=== PATIENT | female | born 1950 | race Caucasian/White ===

== ENCOUNTER 2020-02-23 21:34 | Inpatient (IN) | payer OTHER, SELFPAY ==
--- NOTE | ~2020-02-23 | XR_ITS ---
EXAMINATION: XR chest 1V EXAM DATE: 02/23/2020 22:04 INDICATION: Shortness of breath, cough, low oxygen saturation. Hypertension. TECHNIQUE: Portable AP frontal chest x-ray was obtained. There is no prior study for comparison. FINDINGS: There is bilateral perihilar distribution acute airspace disease, could be pulmonary edema given the cardiomegaly and Central distribution. Periphery of the lungs are clear. No pneumothorax or pleural effusion. There are no osseous abnormalities identified. IMPRESSION: Sizable right greater than left perihilar acute airspace disease. Cardiomegaly. Consider CHF. Infection not excludable. Reviewed, dictated and finalized at location A. INSPECTOR IMPRESSION: Sizable right greater than left perihilar acute airspace disease. C ardiomegaly. Consider CHF. Infection not excludable.
--- NOTE | ~2020-02-23 | XR_ITS ---
EXAMINATION: XR chest 1V portable EXAM DATE: 02/25/2020 08:52 INDICATION: pneumonia. Isolation precautions. TECHNIQUE: Portable AP frontal chest x-ray was obtained. Comparison is made to prior examination from 02/23/2020. FINDINGS: Previously seen right greater than left perihilar airspace disease has essentially resolved , could have been edema given distribution and rapid improvement. Pneumonia also possible. No conflue nt consolidation, pneumothorax or pleural effusion suspected. Mild cardiomegaly. IMPRESSION: Resolution of previously seen right perihilar predominant acute airspace disease. Reviewed, dictated and finalized at location A. ERSITY ADMINISTRATIVE ASSISTANT IMPRESSION: Resolution of previously seen right perihilar predominant acute air space disease.
[2020-02-23 21:38] VITALS: BP 176/127; PULSE 110; RESP 23; O2SAT 100
--- NOTE | 2020-02-23 21:45 | ECG_ITS ---
Measurements Intervals [place] Rate: 97 P: IN: 0 QRS: -49 QRSD: 134 T: 105 QT: 391 QTc: 497 Interpretive Statements SINUS RHYTHM ATRIAL AND VENTRICULAR PREMATURE COMPLEXES LEFT BUNDLE BRANCH BLOCK ANTEROSEPTAL INFARCT OR DUE TO LBBB BASELINE ARTIFACT- I, II, III, AVR, AVL, AVF ABNORMAL ECG Electronically Signed On 02-24-2020 11:12:39 [place] by Kev Roberson D.O.
--- NOTE | 2020-02-23 21:48 | ED.SOB ---
HPI - SOB/Dyspnea General Chief Complaint: Shortness of Breath/Dyspnea Stated Complaint: difficulty breathing Time Seen by Provider: 02/23/20 21:38 History of Present Illness HPI Narrative: 69 yo female w/ h/o heart disease, htn presents to the ED for SOB. This started at about 2000 tonight. It has gotten progressively worse. Noted to have O2 saturation in the 60s on room air. She says she had similar symptoms when she had a heart attack. No Cp, fever. Related Data Home Medications Medication Instructions Recorded Confirmed aspirin 81 mg tablet,delayed 81 mg PO DAILY 07/13/19 02/24/20 release losartan 100 1 tablet PO DAILY 07/13/19 02/24/20 mg-hydrochlorothiazide 25 mg tablet metformin 500 mg tablet 500 mg PO BID tablet 02/15/20 02/24/20 Allergies Allergy/AdvReac Type Severity Reaction Status Date / Time No Known Allergies Allergy Verified 02/15/20 13:40 Review of Systems Review of Systems: All systems reviewed & are unremarkable except as noted in HPI and below Constitutional: Constitutional: Denies chills and Denies fever(s) ENT: Denies sore throat Cardiovascular: Cardiovascular: Denies chest pain Respiratory: Respiratory: Reports cough and Reports dyspnea Gastrointestinal: Gastrointestinal: Denies abdominal pain, Denies nausea and Denies vomiting Genitourinary: Genitourinary: Denies dysuria Musculoskeletal: Musculoskeletal: Denies back pain Neurologic: Denies confusion and Denies weakness [facility] Past Medical History Medical History Arthralgia Bruxism (teeth grinding) Cardiomyopathy (~2014) Chronic left hip pain Class 2 severe obesity with serious comorbidity and body mass index (BMI) of 38.0 to 38.9 in adult Depression Essential (primary) hypertension (~2012) Hearing loss Heart failure, unspecified (~2014) History of HI (myocardial infarction) (~2014) HLD (hyperlipidemia) (~2014) Hypersomnia Hypothyroidism (acquired) (~2017) JORGE (obstructive sleep apnea) Postmenopausal Scoliosis Type 2 diabetes mellitus without complications (~2017) Vitamin D deficiency Wears glasses Surgical History Surgical History History of bilateral tubal ligation (~1985) Family History Family History Father Cerebrovascular accident Family history of congestive heart failure Grandparent Cerebrovascular accident Social History Social History Smoking status: Never smoker Second hand tobacco smoke exposure: No Alcohol intake: current Drinks per week: 1 Substance use: never Substance use type: does not use Gender identity (if verbalized by the patient): Female Spiritual care concerns: No Exam Const: General: alert and ill appearing Nutritional Appearance: obese Orientation/consciousness: patient oriented x3 HENMT: Head: normal to inspection Resp: Effort & Inspection: tachypneic Auscultation: crackles Cardio: Rhythm: abnormal rhythm irregularly irregular GI: GI Palp: No Tenderness to palpation present (GI) Skin: General skin exam: normal color Neuro: General: patient oriented x3 and moves all extremities Extrem: General: no edema Course Vital Signs Vital signs: Vital Signs Pulse Rate 110 H 02/23/20 21:38 Respiratory Rate 23 H 02/23/20 21:38 Blood Pressure 176/127 H 02/23/20 21:38 Pulse Oximetry 100 02/23/20 21:38 Temperature 36.2 C L 02/25/20 20:00 Pulse Rate 67 02/25/20 20:55 Respiratory Rate 20 02/25/20 16:00 Blood Pressure 114/60 02/25/20 16:00 Pulse Oximetry 96 02/25/20 20:00 MDM - SOB/Dyspnea Differential Diagnosis Differential diagnosis: Likely acute exacerbation of chronic obstructive airways disease, congestive heart failure and community acquired pneumonia Medical Records Attestation:
[2020-02-23 22:10] VITALS: PULSE 96; RESP 29
[2020-02-23] MEDS: NITROGLYCERIN OINTMENT 1 INCH DOSE TRANSDERM (22:14)
[2020-02-23 22:22] LABS: Basophils Absolute Auto 0.1 K/mm3 (0.0-0.1); Basophils Percent Auto 0.4 % (0.2-1.2); Eosinophils Absolute Auto 0.3 K/mm3 (0-0.3); Eosinophils Percent Auto 2.1 % (0-4.4); Hematocrit 44.5 % (37.0-47.0); Hemoglobin 14.6 g/dL (12.0-15.0); Immature Granulocyte Absolute 0.08 K/mm3 (0.00-0.031); Immature Granulocyte Percent A 0.5 % (0-0.5); Lymphocytes Absolute Auto 4.47 K/mm3 (0.9-3.2); Lymphocytes Percent Auto 29.3 % (18.3-44.2); Mean Corpuscular HGB Conc 32.8 g/dl (32-36); Mean Corpuscular Hemoglobin 32.2 pg (26-34); Mean Corpuscular Volume 98.2 fl (80-100); Mean Platelet Volume 10.3 fl (7.4-10.4); Monocytes Absolute Auto 0.8 K/mm3 (0.1-0.6); Monocytes Percent Auto 5.3 % (2.6-8.5); Neutrophils Absolute Auto 9.5 K/mm3 (1.3-6.7); Neutrophils Percent Auto 62.4 % (45.5-73.1); Platelet Count Result 363 k/mm3 (150-375); Red Blood Count 4.53 M/mm3 (4.2-5.4); Red Cell Distribution Width 13.1 % (11.5-14.5); White Blood Count 15.3 K/mm3 (4.5-10.0)
[2020-02-23] MEDS: FUROSEMIDE INJ 40 MG/4 ML VIAL IV PUSH (22:25)
[2020-02-23 22:34] LABS: Lactic Acid Reflex 1.8 mmol/L (0.7-2.1)
[2020-02-23 22:42] LABS: Alanine Aminotransferase 16 U/L (4-35); Albumin Level 3.7 g/dL (3.5-5.1); Alkaline Phosphatase 111 U/L (38-126); Anion Gap 6 mmol/L (8-16); Aspartate Amino Transferase 22 U/L (14-36); Bilirubin,Total 0.4 mg/dL (0.2-1.3); Blood Urea Nitrogen 16 mg/dL (7-17); Calcium 8.6 mg/dL (8.4-10.2); Carbon Dioxide 27 mmol/L (22-30); Chloride 102 mmol/L (98-107); Estimated CRCL calculation 54 ml/min; Estimated Glomerular Filt Rate 50; Glucose 408 mg/dL (65-105); Potassium 4.4 mmol/L (3.4-5.0); Sodium 135 mmol/L (137-145)
[2020-02-23 22:51] LABS: Prothrombin Time 13.9 Seconds (11.1-14.7)
[2020-02-23 22:52] LABS: Partial Thromboplastin Time 22.4 SECONDS (22.3-36.8)
--- NOTE | 2020-02-23 22:53 | PM.IMHP ---
H&P: HPI History of Present Illness Date/Time: 02/23/20 22:53 Chief Complaint: Dyspnea Narrative: Isabelle Messina is a 69 year old female with past medical history of hypothyroidism, CHF, history of TX, hypertension, hyperlipidemia, anxiety/depression, diabetes type 2 who presents to the ED with complaints of dyspnea. She was working in her barn outside this evening and felt short of breath with sudden onset so much that she had to call EMS. Did not have any precipitating symptoms, no other complaints, no headache or chest pain or migraines. A similar episode happened 3 years ago when she was outside working in her barn when she suddenly felt short of breath and at that time she was sent to the hospital, thought to have an TX, was told she had heart failure, and coronary catheterization was clear at the time. Since then she has been on aspirin, statin, carvedilol. She also has hypothyroidism on levothyroxine. She saw her PCP on the of this month for preop for left hip replacement which she plans on having early next year. She denies any recent travels, estrogen supplements, history of blood clots or family history of blood clots. She denies any sick contacts or exposures to COVID-19. She denies any history of pneumonia or frequent pulmonary infections in her life. She has 4 adult children but no one lives nearby, closest family is 1.5 hours away. She is usually pretty independent and very active. She is a never smoker. Patient endorses dyspnea, denies chest pain or lightheadedness or dizziness or hemoptysis or feve/ chills. In the ED: Patient was seen be hypoxic oxygen saturation 60s on room air. She put on BiPAP with good improvement with saturations in the 90s. Patient is lucid awake alert. She was given IV Lasix. Patient to be admitted to IMU for management of acute respiratory failure secondary to likely CHF exacerbation/flash pulmonary edema. Review of Systems Review of Systems: Narrative: Constitutional: No Fever, No Chills, No Night Sweats, No Fatigue, No Malaise. Endorses generalized weakness ENT/Mouth: No Hearing Changes, No Ear Pain, No Nasal Congestion, No Sinus Pain, No Hoarseness, No sore throat, No Rhinorrhea, No Swallowing Difficulty Eyes: No Eye Pain, No Redness, No Vision Changes Cardiovascular: No Chest Pain, No Palpitations,No Claudication, No peripheral Edema. Endorses dyspnea on exertion. Respiratory: Endorses persistent dry cough. No Sputum, No Wheezing Gastrointestinal: No Nausea, No Vomiting, No Diarrhea, No Constipation, No Abdominal Pain, No Heartburn, No Hematochezia, No Melena Genitourinary: No Dysuria, No Urinary Frequency, No Hematuria, No Urinary Incontinence, No Urgency Musculoskeletal: No Arthralgias, No Myalgias, No Joint Swelling, No Joint Stiffness, No Back Pain Skin: No Skin Lesions, No Pruritis, No Hair Changes Neuro: No Weakness, No Numbness, No Paresthesias, No Loss of Consciousness, No Syncope, No Dizziness, No Headache Psych: No Anxiety/Panic, No Depression, No Insomnia Heme: No Bruising, No Bleeding Lymph: No Adenopathy Endocrine: No Polyuria, No Polydipsia, No Temperature Intolerance PMFSH Past Medical History Medical History Arthralgia Bruxism (teeth grinding) Cardiomyopathy (~2014) Chronic left hip pain Class 2 severe obesity with serious comorbidity and body mass index (BMI) of 38.0 to 38.9 in adult Depression Essential (primary) hypertension (~2012) Hearing loss Heart failure, unspecified (~2014) History of TX (myocardial infarction) (~2014) HLD (hyperlipidemia) (~2014) Hypersomnia Hypothyroidism (acquired) (~2017) JORGE (obstructive sleep apnea) Postmenopausal Scoliosis Type 2 diabetes mellitus without complications (~2017) Vitamin D deficiency Wears glasses Surgical History Surgical History History of bilateral tubal ligation (~1985) Family
[2020-02-23 22:54] LABS: NT Pro B Type Natriuretic Pept 1890 PG/ML (5-100); Troponin I 0.014 ng/mL (0.000-0.034)
[2020-02-24] VITALS (19 sets, daily range): BP systolic 98–169; BP diastolic 52–85; PULSE 59–96; RESP 16–20; TEMP 36.1–36.4; O2SAT 93–100; BMI 37.0
--- NOTE | 2020-02-24 01:23 | PC.NURSE ---
[facility]01. Patient/family oriented to hospital policies and general routines including ID bracelet, bed and alarms, visiting hours, pain management, procedures, bathroom and other care routines, personal items, smoking policy, room service/diet, and visiting hours. Information on how to activate the Rapid Response Team has been discussed. Patient/Family are encouraged to report perceived risks to care and to ask questions if they do not understand what they are told or what they should do.
--- NOTE | 2020-02-24 01:23 | PC.NURSE ---
ED RT came and stated that patient doesnt need to be on BiPap anymore and placed patient on 2L of Oxygen. Patient's oxygen is 96% on 2L Nasal canula
[2020-02-24 03:14] LABS: Hemoglobin A1C 6.5 % (<5.7)
[2020-02-24 06:06] LABS: Potassium 3.8 mmol/L (3.4-5.0)
[2020-02-24 06:16] LABS: Anion Gap 9 mmol/L (8-16); Blood Urea Nitrogen 16 mg/dL (7-17); Calcium 8.6 mg/dL (8.4-10.2); Carbon Dioxide 28 mmol/L (22-30); Chloride 101 mmol/L (98-107); Estimated CRCL calculation 59 ml/min; Estimated Glomerular Filt Rate 55; Glucose 134 mg/dL (65-105); Sodium 138 mmol/L (137-145)
[2020-02-24] MEDS: carvediloL 25 MG TABLET PO ×2 (09:07→21:20)
[2020-02-24] MEDS: LOSARTAN POTASSIUM 100 MG TABLET PO (09:07)
[2020-02-24] MEDS: ATORVASTATIN 40 MG TABLET PO (09:08)
[2020-02-24] MEDS: ASPIRIN 81 MG ENTERIC TABLET PO (09:08)
[2020-02-24] MEDS: LEVOTHYROXINE SODIUM 100 MCG TABLET PO (09:08)
[2020-02-24] MEDS: hydroCHLOROthiazide 25 MG TABLET PO (09:08)
[2020-02-24] MEDS: DULoxetine HCL 20 MG CAPSULE.DR 40 MG PO (09:08)
[2020-02-24] MEDS: FUROSEMIDE INJ 40 MG/4 ML VIAL IV PUSH (09:09)
[2020-02-24] MEDS: ENOXAPARIN 40 MG/0.4 ML SYRINGE SUB-Q (09:09)
[2020-02-24 13:32] LABS: Glucose Point of Care 130 (65-105)
--- NOTE | 2020-02-24 14:19 | PM.IMPN ---
Progress Note: A&P Assessment and Plan (1) Acute respiratory failure with hypoxia: Code(s): J96.01 - Acute respiratory failure with hypoxia Status: Acute Assessment and Plan: -differential diagnosis includes flash pulmonary edema versus community-acquired pneumonia versus COVID-19 -patient was put on BiPAP in the ED, will continue to watch and wean as we diurese to keep oxygen saturation greater 90% -COVID-19 test pending, checking blood cultures -with no fever/chills and symptoms like dry cough more likely from pulmonary edema, likely diagnosis is CHF and flash pulmonary edema as opposed to infectious etiology -holding off on antibiotics 02/24/20 14:19 Patient is 69-year-old morbidly obese female history of diabetes, hypertension, coronary artery disease, patient states he was doing reasonably well working in the barn and developed shortness of breath presented emergency department for further evaluation, patient denies any contact to known, COVID, chest x-ray shows significant consolidation infectious versus pulmonary edema patient is being diuresed will do cardiac echo to further evaluate will start the patient on Zithromax and Rocephin for community-acquired pneumonia, will follow-up on COVID-19 test and further recommendation to follow meanwhile patient is isolated (2) Heart failure, unspecified: Onset Date: ~2014 Qualifiers: Heart failure chronicity: acute on chronic Heart failure type: unspecified Qualified Code(s): I50.9 - Heart failure, unspecified Code(s): I50.9 - Heart failure, unspecified Status: Acute Assessment and Plan: -will repeat echocardiogram, patient states she has history of heart failure. Unknown baseline. She was previously told she had a heart attack however had a negative catheterization. He is not on any loop diuretics at home. -continue home Coreg -diuresing with IV Lasix with good urine output, she has already been weaned down to 2 L oxygen satting at 98% -strict inputs and outputs -trying to wean off O2 -patient is already on Arb, beta-loly, diuretics, statin -patient appeared to be in sinus rhythm, telemetry consistent with sinus rhythm, ER documented irregular rhythm, checking EKG to verify rhythm, patient has no history of AFib (3) Degenerative joint disease (DJD) of hip: Qualifiers: Laterality: left Osteoarthritis type: primary Qualified Code(s): M16.12 - Unilateral primary osteoarthritis, left hip Code(s): M16.9 - Osteoarthritis of hip, unspecified Status: Acute Assessment and Plan: -patient plans on having left hip replacement soon outpatient electively (4) Class 2 severe obesity with serious comorbidity and body mass index (BMI) of 38.0 to 38.9 in adult: Qualifiers: Obesity type: due to excess calories Qualified Code(s): E66.01 - Morbid (severe) obesity due to excess calories; Z68.38 - Body mass index [BMI] 38.0-38.9, adult Code(s): E66.01 - Morbid (severe) obesity due to excess calories; Z68.38 - Body mass index [BMI] 38.0-38.9, adult Status: Acute (5) CKD (chronic kidney disease): Code(s): N18.9 - Chronic kidney disease, unspecified Status: Acute Assessment and Plan: -currently GFR 50, unknown baseline -likely has underlying renal disease with her history of hypertension and diabetes -creatinine 1.1 Additional Plan # other chronic conditions -type 2 diabetes: Hold metformin, medium dose sliding scale insulin, Accu-Cheks a.c. HS, hypoglycemic protocol, checking hemoglobin A1c -hypertension: Continue home losartan, hydrochlorothiazide, Coreg -hypothyroidism: Continue levothyroxine -hyperlipidemia, history of NC: Continue atorvastatin, aspirin -anxiety/depression: Continue duloxetine Diet: Heart healthy with 1.5 L fluid restriction DVT prophylaxis: Lovenox Code status: Full code Disposition: Home 2-3 days for IV diuresis with kidney disease and acute respiratory fa
[2020-02-24 17:11] LABS: Glucose Point of Care 141 (65-105)
[2020-02-24 19:16] LABS: Glucose Point of Care 170 (65-105)
[2020-02-24 20:37] LABS: Glucose Point of Care 165 (65-105)
[2020-02-25] VITALS (17 sets, daily range): BP systolic 113–142; BP diastolic 60–79; PULSE 54–90; RESP 18–20; TEMP 36.1–36.8; O2SAT 96–99
--- NOTE | 2020-02-25 | ECHO_ITS ---
Patient Info Name: Isabelle Messina Age: 69 years : 1950 Gender: Female Ht: 66 in Wt: 229 lbs BSA: 2.24 m2 HR: 67 bpm BP: 130 / 79 mmHg Heart Rhythm: Sinus Rhythm Technical Quality: Good Exam Date: 02/25/2020 8:05 AM Exam Location: [facility] Pulmonary Patient Status: Inpatient Admit Date: 02/23/2020 Staff Ordering Physician: Missy Roberts DO Jig Borer: Noemí Lopez RDCS Attending Provider: Missy Roberts DO Referring Physician: Alejandra POWER; Exam Type: CA echo doppler color flow Study Info Complete two-dimensional, color flow and Doppler transthoracic echocardiogram is performed. Summary 1. Complete two-dimensional, color flow and Doppler transthoracic echocardiogram is performed. 2. Mild left ventricular enlargement with moderate hypertrophy. Moderate global hypokinesis, worse in the inferoseptal gupta. EF estimated to be 40%. Grade 1 diastolic dysfunction is present. 3. Left atrial chamber dimension is moderately enlarged. 4. No pulmonary hypertension. 5. There is mild to moderate mitral valve regurgitation. 6. There is trivial pericardial effusion. 7. Normal sinus rhythm. Left Ventricle Left ventricular chamber dimension is mildly enlarged. Left ventricular systolic function is moderately reduced, estimated at 40-45%. There is moderately increased left ventricular wall thickness. Left ventricular septal wall motion is normal. The left ventricular diastolic function is grade I diastolic dysfunction. Mild left ventricular enlargement with moderate hypertrophy. Moderate global hypokinesis, worse in the inferoseptal gupta. EF estimated to be 40%. Grade 1 diastolic dysfunction is present. Right Ventricle Right ventricular chamber dimension is normal. Right ventricular systolic function is normal. Left Atria Left atrial chamber dimension is moderately enlarged. Right Atria Right atrial chamber dimension is normal. Aortic Valve The aortic valve is trileaflet. There is no aortic valve sclerosis. There is no aortic valve stenosis. There is no aortic valve regurgitation. Pulmonic Valve The pulmonic valve is normal. There is no pulmonic valve stenosis. There is no pulmonic regurgitation. Mitral Valve The mitral valve has normal leaflets. There is no mitral valve stenosis. There is mild to moderate mitral valve regurgitation. Tricuspid Valve The tricuspid valve leaflets are normal. There is no significant tricuspid valve stenosis. There is trace tricuspid valve regurgitation. No pulmonary hypertension. Pericardium/Pleural The pericardium appears normal. There is trivial pericardial effusion. Inferior Vena Cava Normal inferior vena cava with >50% collapse upon inspiration consistent with Empty right atrial pressure, 10 mmHg. Aorta The aortic root size at the sinus of Valsalva is normal. The prox ascending aorta size is normal. Left Ventricular Outflow Tract Name Value Normal LVOT 2D LVOT Diameter 2.2 cm LVOT Doppler LVOT Peak Gradient 2 mmHg LVOT Mean Gradient 1 mmHg
[2020-02-25] MEDS: LEVOTHYROXINE SODIUM 100 MCG TABLET PO (06:12)
[2020-02-25 06:52] LABS: Anion Gap 6 mmol/L (8-16); Blood Urea Nitrogen 21 mg/dL (7-17); Calcium 9.1 mg/dL (8.4-10.2); Carbon Dioxide 35 mmol/L (22-30); Chloride 97 mmol/L (98-107); Estimated CRCL calculation 49 ml/min; Estimated Glomerular Filt Rate 45; Glucose 141 mg/dL (65-105); Magnesium 1.9 mg/dL (1.6-2.3); Potassium 3.4 mmol/L (3.4-5.0); Sodium 138 mmol/L (137-145)
[2020-02-25 08:24] LABS: Glucose Point of Care 156 (65-105)
[2020-02-25] MEDS: carvediloL 25 MG TABLET PO ×2 (09:25→20:55)
[2020-02-25] MEDS: LOSARTAN POTASSIUM 100 MG TABLET PO (09:25)
[2020-02-25] MEDS: DULoxetine HCL 20 MG CAPSULE.DR 40 MG PO (09:25)
[2020-02-25] MEDS: ATORVASTATIN 40 MG TABLET PO (09:25)
[2020-02-25] MEDS: ASPIRIN 81 MG ENTERIC TABLET PO (09:25)
[2020-02-25] MEDS: hydroCHLOROthiazide 25 MG TABLET PO (09:25)
[2020-02-25] MEDS: FUROSEMIDE INJ 40 MG/4 ML VIAL IV PUSH (09:26)
[2020-02-25] MEDS: ENOXAPARIN 40 MG/0.4 ML SYRINGE SUB-Q (09:26)
[2020-02-25 11:53] LABS: Glucose Point of Care 172 (65-105)
--- NOTE | 2020-02-25 13:38 | PM.IMPN ---
Progress Note: A&P Assessment and Plan (1) Acute respiratory failure with hypoxia: Code(s): J96.01 - Acute respiratory failure with hypoxia Status: Acute Assessment and Plan: -differential diagnosis includes flash pulmonary edema versus community-acquired pneumonia versus COVID-19 -patient was put on BiPAP in the ED, will continue to watch and wean as we diurese to keep oxygen saturation greater 90% -COVID-19 test pending, checking blood cultures -with no fever/chills and symptoms like dry cough more likely from pulmonary edema, likely diagnosis is CHF and flash pulmonary edema as opposed to infectious etiology -holding off on antibiotics 02/25/20 13:38 Patient is 69-year-old morbidly obese female history of diabetes, hypertension, coronary artery disease, 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 Today patient states feeling much better not short of breath, repeat chest x-ray today also showed significant improvement resolution of pulmonary edema, patient COVID is still is pending will continue to monitor the patient and further recommendation to follow will have a PT OT evaluate the patient. (2) Heart failure, unspecified: Onset Date: ~2014 Qualifiers: Heart failure type: unspecified Heart failure chronicity: acute on chronic Qualified Code(s): I50.9 - Heart failure, unspecified Code(s): I50.9 - Heart failure, unspecified Status: Acute Assessment and Plan: -will repeat echocardiogram, patient states she has history of heart failure. Unknown baseline. She was previously told she had a heart attack however had a negative catheterization. He is not on any loop diuretics at home. 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 Today patient states feeling much better not short of breath, repeat chest x-ray today also showed significant improvement resolution of pulmonary edema, patient COVID is still is pending will continue to monitor the patient and further recommendation to follow will have a PT OT evaluate the patient. Review of Systems Review of Systems: All systems reviewed & are unremarkable except as noted in HPI and below Exam Narrative: Exam Narrative: Morbidly obese Patient is comfortable, NAD HEENT: eyes are clear and none icteric LUNGS: Normal respiratory effort ABD: Obese and distended Lower extremities: no edema SKIN: nonjaundiced Neuro: grossly intact normal speech. Objec
[2020-02-25 16:24] LABS: Glucose Point of Care 148 (65-105)
[2020-02-25 19:30] LABS: SARS-CoV-2 RNA PCR Negative
[2020-02-25 20:47] LABS: Glucose Point of Care 182 (65-105)
[2020-02-26] VITALS (11 sets, daily range): BP systolic 119–129; BP diastolic 55–69; PULSE 57–95; RESP 16–20; TEMP 36.3–36.8; O2SAT 90–98
[2020-02-26] MEDS: LEVOTHYROXINE SODIUM 100 MCG TABLET PO (05:32)
[2020-02-26 06:00] LABS: Anion Gap 9 mmol/L (8-16); Blood Urea Nitrogen 28 mg/dL (7-17); Calcium 9.3 mg/dL (8.4-10.2); Carbon Dioxide 34 mmol/L (22-30); Chloride 94 mmol/L (98-107); Estimated CRCL calculation 49 ml/min; Estimated Glomerular Filt Rate 45; Glucose 150 mg/dL (65-105); Potassium 3.1 mmol/L (3.4-5.0); Sodium 137 mmol/L (137-145)
[2020-02-26 08:00] LABS: Glucose Point of Care 156 (65-105)
[2020-02-26] MEDS: POTASSIUM CHLORIDE 20 MEQ TABLET 40 MEQ PO (09:20)
[2020-02-26] MEDS: DULoxetine HCL 20 MG CAPSULE.DR 40 MG PO (09:21)
[2020-02-26] MEDS: ASPIRIN 81 MG ENTERIC TABLET PO (09:21)
[2020-02-26] MEDS: ENOXAPARIN 40 MG/0.4 ML SYRINGE SUB-Q (09:22)
[2020-02-26] MEDS: LOSARTAN POTASSIUM 100 MG TABLET PO (09:22)
[2020-02-26] MEDS: ATORVASTATIN 40 MG TABLET PO (09:22)
[2020-02-26] MEDS: carvediloL 25 MG TABLET PO (09:22)
[2020-02-26] MEDS: FUROSEMIDE INJ 40 MG/4 ML VIAL IV PUSH (09:23)
[2020-02-26] MEDS: hydroCHLOROthiazide 25 MG TABLET PO (09:23)
--- NOTE | 2020-02-26 11:04 | HOMEO2EVAL ---
Home Oxygen Evaluation RC: Home Oxygen (O2) Evaluation Start: 02/26/20 08:03 Freq: ONCE Status: Active Protocol: RPE Activity Type Activity Date Activity User E-Sign Co-Sign Detail Recorded Client Recorded Date Recorded By Document 02/26/20 10:30 [facility]_RT_02/26/20 11:04 [facility] Document 02/26/20 10:32 [facility]_RT_02/26/20 11:04 [facility] Document 02/26/20 10:41 [facility]_RT_02/26/20 11:04 [facility] 02/26/20 02/26/20 02/26/20 10:30 10:32 10:41 Home O2 Evaluation Test Phase Resting Exercise Resting Oxygen Delivery Room Air Room Air Room Air Fraction of Inspired Oxygen (%) 21 21 21 Pulse Oximetry (90-100 %) 90 90 93 Pulse Rate (60-100 beats/min) 88 95 92 Activity Tolerance Good Good Good Ambulation Distance (feet) 80 Home Oxygen Evaluation Comments Pt does not qualify for home oxygen Treatment Charges O2 Evaluation
--- NOTE | 2020-02-26 11:37 | PM.DS ---
DS: Admitting Diagnosis Admitting Diagnosis Admitting Diagnosis: Dyspnea DS: Discharge Diagnosis Discharge Diagnosis (1) Acute respiratory failure with hypoxia: Code(s): J96.01 - Acute respiratory failure with hypoxia Status: Acute Assessment and Plan: -differential diagnosis includes flash pulmonary edema versus community-acquired pneumonia versus COVID-19 -patient was put on BiPAP in the ED, will continue to watch and wean as we diurese to keep oxygen saturation greater 90% -COVID-19 test pending, checking blood cultures -with no fever/chills and symptoms like dry cough more likely from pulmonary edema, likely diagnosis is CHF and flash pulmonary edema as opposed to infectious etiology -holding off on antibiotics 02/25/20 13:38 Patient is 69-year-old morbidly obese female history of diabetes, hypertension, coronary artery disease, 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 Today patient states feeling much better not short of breath, repeat chest x-ray today also showed significant improvement resolution of pulmonary edema, patient COVID is still is pending will continue to monitor the patient and further recommendation to follow will have a PT OT evaluate the patient. (2) Heart failure, unspecified: Onset Date: ~2014 Qualifiers: Heart failure type: unspecified Heart failure chronicity: acute on chronic Qualified Code(s): I50.9 - Heart failure, unspecified Code(s): I50.9 - Heart failure, unspecified Status: Acute Assessment and Plan: -will repeat echocardiogram, patient states she has history of heart failure. Unknown baseline. She was previously told she had a heart attack however had a negative catheterization. He is not on any loop diuretics at home. -continue home Coreg -diuresing with IV Lasix with good urine output, she has already been weaned down to 2 L oxygen satting at 98% -strict inputs and outputs -trying to wean off O2 -patient is already on Arb, beta-loly, diuretics, statin -patient appeared to be in sinus rhythm, telemetry consistent with sinus rhythm, ER documented irregular rhythm, checking EKG to verify rhythm, patient has no history of AFib DS: Summary Hospital Course Reason for hospitalization: Chief Complaint: Dyspnea Narrative: Isabelle Messina is a 69 year old female with past medical history of hypothyroidism, CHF, history of UT, hypertension, hyperlipidemia, anxiety/depression, diabetes type 2 who presents to the ED with complaints of dyspnea. She was working in her barn outside this evening and felt short of breath with sudden onset so much that she had to call EMS. Did not have any precipitating symptoms, no other complaints, no headache or chest pain or migraines. A similar episode happened 3 years ago when she was outside working in her barn when she suddenly felt short of breath and at that time she was sent to the hospital, thought to have an UT, was told she had heart failure, and coronary catheterization was clear at the time. Since then she has been on aspirin, statin, carvedilol. She also has hypothyroidism on levothyroxine. She saw her PCP on the of this month for preop for left hip replacement which she plans on having early next year. She denies any recent travels, estrogen supplements, history of blood clots or family history of blood clots. She denies any sick contacts or exposures to COVID-19. She denies any history of pneumonia or frequent pulmonary infections in h
== END 2020-02-26 13:06 | disposition home or self-care (01) | DRG 291 ==
LOC: ANHED 23:11 → ANHIMU 02-25 22:52
PROVIDERS: Admitting Provider Student in an Organized Health Care Education/Training Program; Emergency Provider Emergency Medicine; PCP Family Medicine; Visit Provider Family Medicine
DX: I13.0 Hypertensive heart and chronic kidney disease with heart failure and stage 1 through stage 4 chronic kidney disease, or unspecified chronic kidney disease (principal); J18.9 Pneumonia, unspecified organism; J96.01 Acute respiratory failure with hypoxia; Z20.828 Contact with and (suspected) exposure to other viral communicable diseases; N18.9 Chronic kidney disease, unspecified; I50.9 Heart failure, unspecified; E11.22 Type 2 diabetes mellitus with diabetic chronic kidney disease; E66.01 Morbid (severe) obesity due to excess calories; Z68.36 Body mass index [BMI] 36.0-36.9, adult; I25.10 Atherosclerotic heart disease of native coronary artery without angina pectoris; G47.33 Obstructive sleep apnea (adult) (pediatric); M41.9 Scoliosis, unspecified; F41.8 Other specified anxiety disorders; E55.9 Vitamin D deficiency, unspecified; E03.9 Hypothyroidism, unspecified; E11.9 Type 2 diabetes mellitus without complications; E78.5 Hyperlipidemia, unspecified; M16.9 Osteoarthritis of hip, unspecified; I25.2 Old myocardial infarction
CPT/HCPCS: 36415; 71045; 80048; 80053; 83036; 83605; 83735; 83880; 84484; 85025; 85610; 85730; 87040; 87635; 93005; 93306; 94618; 96374; 97161; 97165; 99291; A9270; C9803; J1650; J1940; U0003

== ENCOUNTER 2020-04-25 20:57 | Observation (INO) | payer OTHER, SELFPAY ==
--- NOTE | ~2020-04-25 | XR_ITS ---
EXAMINATION: XR chest 2V DATE: 04/25/2020 21:38 INDICATION: Shortness of breath. TECHNIQUE: Frontal and lateral views of the chest were obtained. COMPARISON: Chest single view 02/25/2020 FINDINGS: There is a diffuse interstitial pattern, consistent with mild pulmonary edema. There are sm all pleural effusions. There is mild atelectasis at the lung bases. No pneumothorax. Cardiomegaly is noted. IMPRESSION: 1. Mild pulmonary edema. 2. Small pleural effusions. 3. Cardiomegaly. Reviewed, dictated and finalized at location A. [employer]
[2020-04-25 21:04] VITALS: BP 148/109; PULSE 93; RESP 20; TEMP 36.1; O2SAT 84
[2020-04-25 21:13] VITALS: PULSE 110; RESP 38; O2SAT 86
[2020-04-25 21:15] VITALS: PULSE 95; RESP 31; O2SAT 88; O2SAT 94
--- NOTE | 2020-04-25 21:15 | ECG_ITS ---
Measurements Intervals [place] Rate: 100 P: KS: 0 QRS: -36 QRSD: 120 T: 99 QT: 357 QTc: 462 Interpretive Statements ATRIAL FIBRILLATION WITH RAPID VENTRICULAR RESPONSE LEFT AXIS DEVIATION LEFT BUNDLE BRANCH BLOCK ANTEROSEPTAL INFARCT OR DUE TO LBBB BASELINE ARTIFACT- I, II, III, AVR, AVL, AVF, V1-V3 ABNORMAL ECG Electronically Signed On 04-26-2020 6:47:19 [employer] by Kev Roberson D.O.
[2020-04-25 21:20] VITALS: BP 157/112; PULSE 101; RESP 38; O2SAT 94
[2020-04-25 21:46] LABS: Basophils Absolute Auto 0.1 K/mm3 (0.0-0.1); Basophils Percent Auto 0.4 % (0.2-1.2); Eosinophils Absolute Auto 0.2 K/mm3 (0-0.3); Eosinophils Percent Auto 1.1 % (0-4.4); Hematocrit 38.8 % (37.0-47.0); Hemoglobin 13.2 g/dL (12.0-15.0); Immature Granulocyte Absolute 0.04 K/mm3 (0.00-0.031); Immature Granulocyte Percent A 0.3 % (0-0.5); Lymphocytes Absolute Auto 2.56 K/mm3 (0.9-3.2); Lymphocytes Percent Auto 19.2 % (18.3-44.2); Mean Corpuscular Volume 94.2 fl (80-100); Mean Platelet Volume 10.2 fl (7.4-10.4); Monocytes Absolute Auto 0.9 K/mm3 (0.1-0.6); Neutrophils Absolute Auto 9.6 K/mm3 (1.3-6.7); Platelet Count Result 286 k/mm3 (150-375); Red Blood Count 4.12 M/mm3 (4.2-5.4); Red Cell Distribution Width 14.2 % (11.5-14.5); White Blood Count 13.4 K/mm3 (4.5-10.0)
--- NOTE | 2020-04-25 21:49 | ED.SOB ---
HPI - SOB/Dyspnea General Chief Complaint: Shortness of Breath/Dyspnea Stated Complaint: high blood pressure Time Seen by Provider: 04/25/20 21:18 Source: patient Mode of arrival: ambulatory Limitations: no limitations History of Present Illness HPI Narrative: A 69-year-old female comes into the emergency department today with complaints of shortness of breath. Patient states that she is also having a lot of back pain. Patient states that she thinks this is pneumonia because whenever she gets pneumonia she gets pain in her back like this. She does endorse a sporadically productive cough. She denies any fevers or chills. Related Data Home Medications Medication Instructions Recorded Confirmed aspirin 81 mg tablet,delayed 81 mg PO DAILY 07/13/19 02/24/20 release losartan 100 1 tablet PO DAILY 07/13/19 02/24/20 mg-hydrochlorothiazide 25 mg tablet metformin 500 mg tablet 500 mg PO BID tablet 02/15/20 02/24/20 Allergies Allergy/AdvReac Type Severity Reaction Status Date / Time No Known Allergies Allergy Verified 02/15/20 13:40 Review of Systems Review of Systems: Narrative: CONSTITUTIONAL: Denies fever, chills, or sweats. EYES: Denies visual changes, redness, or discharge. ENT: Denies rhinorrhea, congestion, sore throat, or otalgia. CARDIOVASCULAR: Denies chest pain, palpitations, or edema. RESPIRATORY: Endorses cough and shortness of breath. GASTROINTESTINAL: Denies abdominal pain, nausea, vomiting, or diarrhea. GENITOURINARY: Denies dysuria or hematuria. SKIN: Denies rash or itching. MUSCULOSKELETAL: Denies back pain, joint pain, or myalgia. NEUROLOGIC: Denies headache, numbness, dizziness, or weakness. PSYCHIATRIC: Denies anxiety or depression. [facility] Past Medical History Medical History Arthralgia Bruxism (teeth grinding) Cardiomyopathy (~2014) Chronic left hip pain Class 2 severe obesity with serious comorbidity and body mass index (BMI) of 38.0 to 38.9 in adult Depression Essential (primary) hypertension (~2012) Hearing loss Heart failure, unspecified (~2014) History of FL (myocardial infarction) (~2014) HLD (hyperlipidemia) (~2014) Hypersomnia Hypothyroidism (acquired) (~2018) JORGE (obstructive sleep apnea) Postmenopausal Scoliosis Type 2 diabetes mellitus without complications (~2017) Vitamin D deficiency Wears glasses Surgical History Surgical History History of bilateral tubal ligation (~1985) Family History Family History Father Cerebrovascular accident Family history of congestive heart failure Grandparent Cerebrovascular accident Social History Social History Smoking status: Never smoker Second hand tobacco smoke exposure: No Alcohol intake: current Drinks per week: 1 Substance use: never Substance use type: does not use Gender identity (if verbalized by the patient): Female Spiritual care concerns: No Exam Narrative: Exam Narrative: GENERAL: Well-appearing, morbidly obese, and in no acute distress. HEAD: Normocephalic, atraumatic. EYES: PERRLA and EOMI. ENT: Nares clear, no rhinorrhea or epistaxis. Mucous membranes moist. NECK: Supple. No adenopathy or masses. No carotid bruits or JVD CHEST: Crackles in the bibasilar distribution. HEART: Regular rate and rhythm. No murmur heard. Normal peripheral pulses. ABDOMEN: Soft, nontender, nondistended, normal active bowel sounds. EXTREMITIES: Normal range of motion. No edema. SKIN: Warm, dry, no rash. NEURO: No focal deficits. Alert and oriented x3. PSYCH: Normal mood and affect. Course Reevaluation(s) Reevaluation #1: Patient resting comfortably still on nasal cannula. Patient was placed on a trial on room air. She noted that she started to feel somewhat more short of breath, did desat down to the mid
[2020-04-25] MEDS: IPRATROPIUM BR 0.02% INH SOLN 0.5 MG/2.5 ML VIAL 1 MG INHALATION (22:02)
[2020-04-25] MEDS: ALBUTEROL SULFATE NEB 2.5 MG/0.5 ML INH 5 MG INHALATION (22:02)
[2020-04-25 22:03] VITALS: PULSE 82; RESP 20
[2020-04-25 22:03] LABS: Anion Gap 7 mmol/L (8-16); Blood Urea Nitrogen 19 mg/dL (7-17); Calcium 9.1 mg/dL (8.4-10.2); Carbon Dioxide 30 mmol/L (22-30); Chloride 102 mmol/L (98-107); Estimated CRCL calculation 54 ml/min; Estimated Glomerular Filt Rate 50; Glucose 200 mg/dL (65-105); Potassium 4.1 mmol/L (3.4-5.0); Sodium 139 mmol/L (137-145)
[2020-04-25 22:15] LABS: Troponin I 0.017 ng/mL (0.000-0.034)
[2020-04-25 22:51] VITALS: BP 127/111; PULSE 87; RESP 24; O2SAT 96
[2020-04-26] VITALS (16 sets, daily range): BP systolic 136–162; BP diastolic 88–117; PULSE 76–101; RESP 16–26; TEMP 36.1–36.9; O2SAT 84–99; BMI 38.0
[2020-04-26] MEDS: FUROSEMIDE INJ 40 MG/4 ML VIAL IV PUSH (03:36)
--- NOTE | 2020-04-26 05:30 | ADMGEN ---
This patient, Isabelle Middleton [facility], was admitted to 2 Medical Room 258-01. Patient/family oriented to hospital policies and general routines including ID bracelet, bed and alarms, visiting hours, pain management, procedures, bathroom and other care routines, personal items, smoking policy, room service/diet, and visiting hours. Information on how to activate the Rapid Response Team has been discussed. Patient/Family are encouraged to report perceived risks to care and to ask questions if they do not understand what they are told or what they should do.
[2020-04-26 08:00] LABS: Glucose Point of Care 156 (65-105)
--- NOTE | 2020-04-26 10:06 | PM.IMHP ---
H&P: HPI History of Present Illness Date/Time: 04/26/20 10:06 Chief Complaint: SOB history of chf Narrative: Isabelle Mesisna is a 69 year old female with past medical history of hypothyroidism, CHF, history of NM, hypertension, hyperlipidemia, anxiety/depression, diabetes type 2 who presents to the ED with complaints of dyspnea. Pt having three admissions with CHF since January 2020. Pt is on 2 liters of oxygen presently and is having saturation @ 97%. Pt lost her in January and does not feel like she is coping. Pt has a PCP but does not see cardiology. EF is 40%. from recent echo 01/31. Pt recently started on metformin for DM. Hbaic is 6.9. CXr shows - 1. Mild pulmonary edema. 2. Small pleural effusions. 3. Cardiomegaly. Review of Systems Review of Systems: All systems reviewed & are unremarkable except as noted in HPI and below PMFSH Past Medical History Medical History Arthralgia Bruxism (teeth grinding) Cardiomyopathy (~2014) Chronic left hip pain Class 2 severe obesity with serious comorbidity and body mass index (BMI) of 38.0 to 38.9 in adult Depression Essential (primary) hypertension (~2012) Hearing loss Heart failure, unspecified (~2014) History of NM (myocardial infarction) (~2014) HLD (hyperlipidemia) (~2014) Hypersomnia Hypothyroidism (acquired) (~2017) JORGE (obstructive sleep apnea) Postmenopausal Scoliosis Type 2 diabetes mellitus without complications (~2017) Vitamin D deficiency Wears glasses Surgical History Surgical History History of bilateral tubal ligation (~1985) Family History Family History Father Cerebrovascular accident Family history of congestive heart failure Grandparent Cerebrovascular accident Social History Social History Smoking status: Never smoker Second hand tobacco smoke exposure: No Alcohol intake: never Drinks per week: 1 Substance use: never Substance use type: does not use Gender identity (if verbalized by the patient): Female Spiritual care concerns: No Meds Home Medications and Allergies Home Medications Medication Instructions Recorded Confirmed Type aspirin 81 mg tablet,delayed 81 mg PO DAILY 07/13/19 04/26/20 History release atorvastatin 40 mg tablet 40 mg PO DAILY #90 tablet 10/12/19 04/26/20 Rx metformin 500 mg tablet 500 mg PO BID tablet 02/15/20 04/26/20 History duloxetine 40 mg capsule,delayed 40 mg PO DAILY #90 cap 02/21/20 04/26/20 Rx release carvedilol 25 mg PO Q12H 04/26/20 04/26/20 History levothyroxine 100 mcg PO DAILY 04/26/20 04/26/20 History Allergies Allergy/AdvReac Type Severity Reaction Status Date / Time No Known Allergies Allergy Verified 02/15/20 13:40 Vital Signs Vital Signs - 24 hr 04/25/20 21:04 04/25/20 21:13 04/25/20 21:15 Temperature 36.1 C L Pulse Rate 93 110 H 95 Respiratory Rate 20 38 H 31 H Blood Pressure 148/109 H Pulse Oximetry 84 L 86 L 94 04/25/20 21:20 04/25/20 22:03 04/25/20 22:51 Temperature Pulse Rate 101 H 82 87 Respiratory Rate 38 H 20 24 H Blood Pressure 157/112 H 127/111 H Pulse Oximetry 94 96 04/26/20 01:43 04/26/20 01:44 04/26/20 03:34 Temperature 36.9 C Pulse Rate 83 101 H Respiratory Rate 22 H 24 H Blood Pressure 161/108 H 162/117 H Pulse Oximetry 84 L 92 95 04/26/20 05:20 04/26/20 06:00 04/26/20 06:05 Temperature 36.6 C 36.2 C L Pulse Rate 79 76 Respiratory Rate 26 H 20 Blood Pressure 138/110 H 140/92 H Pulse Oximetry 96 97 97 04/26/20 06:41 04/26/20 08:29 Temperature Pulse Rate 97 Respiratory Rate Blood Pressure Pulse Oximetry 97 Exam Const: General: other (morbidly obese, on 2 liters of oxygen ) HENMT: Head: normocephalic Eyes: General: appearance normal
[2020-04-26 13:22] LABS: Hemoglobin A1C 7.1 % (<5.7)
--- NOTE | 2020-04-26 13:35 | PM.CNCAR ---
Assessment and Plan Assessment and plan (1) Acute CHF (congestive heart failure): Qualifiers: Heart failure type: systolic Qualified Code(s): I50.21 - Acute systolic (congestive) heart failure Code(s): I50.9 - Heart failure, unspecified Status: Acute Assessment and Plan: Patient is a 69-year-old white woman with history of heart failure with reduced ejection fraction, nonischemic cardiomyopathy (2015), myocardial infarction (2015), paroxysmal atrial fibrillation, hypertension, hyperlipidemia, diabetes mellitus type 2, morbid obesity, severe obstructive sleep apnea (not on CPAP), hypothyroidism, hearing loss, depression, anxiety, who is seen in cardiac consultation for chief complaint of dyspnea. -she has acute on chronic heart failure with reduced ejection fraction occurring in the setting of hypertensive urgency, atrial fibrillation with rapid ventricular response, noncompliance with CPAP for severe obstructive sleep apnea, noncompliance with Cardiology follow-up, and dietary noncompliance with some added sodium in her diet. -improve blood pressure control with continued diuresis with intravenous Lasix, with careful monitoring of renal function and electrolytes, including magnesium. -improve rate control and management of congestive heart failure with addition of digoxin. -continue her outpatient carvedilol 25 mg b.i.d. -pending stabilization of her mildly elevated creatinine, anticipate addition of losartan 25 mg daily as an eventual bridge to outpatient transition to Entresto given her recurrent CHF exacerbations, if Entresto is approved by her [employer] insurance. -pending stabilization of her renal function, consider addition of spironolactone. -importance of follow-up in the Cardiology Clinic discussed with the patient given her history of noncompliance with follow-up. -importance of compliance with low-sodium diet discussed with the patient, given her recent addition of sodium to her diet. -importance of an outpatient sleep study with initiation of CPAP discussed with the patient in the setting of her untreated severe obstructive sleep apnea. -obtain TSH given her hypothyroidism, treated with thyroid hormone supplement only for the last year, with associated 25 lb weight loss in the last year. -continue aspirin as per outpatient regimen. -given her elevated white blood count with neutrophilia on admission, repeat CBC, with further management as per primary service. -Recently, she had echocardiogram 02/25/2020: Mild left ventricular enlargement with moderate left ventricular hypertrophy, moderate left ventricular hypokinesis, worse in the inferoseptal gupta, left ventricular ejection fraction estimated at 40%, grade 1 diastolic dysfunction, left atrium moderately enlarged, no pulmonary hypertension, [id number] mitral regurgitation, trivial pericardial effusion, normal sinus rhythm. -Previously, she had cardiac catheterization March 25, 2016 which demonstrated normal coronary arteries with nonischemic cardiomyopathy (LVEF 30%). -consider outpatient Lexiscan nuclear stress testing to evaluate for ischemia pending resolution of her congestive heart failure. Troponin I negative for injury this admission on presentation, and EKG without evidence of acute injury. (2) Class 2 severe obesity with serious comorbidity and body mass index (BMI) of 38.0 to 38.9 in adult: Qualifiers: Obesity type: due to excess calories Qualified Code(s): E66.01 - Morbid (severe) obesity due to excess calories; Z68.38 - Body mass index [BMI] 38.0-38.9, adult Code(s): E66.01 - Morbid (severe) obesity due to excess calories; Z68.38 - Body mass index [BMI] 38.0-38.9, adult Status: Acute Assessment and Plan: -20 lb weight loss needed in the next several months. (3) HLD (hyperlipidemia): Onset Date: ~2014 Qualifiers: Hyperlipidemia type: unspecified Qualified Code(s): E78.5 - Hyperlipidemia, unspecified
[2020-04-26] MEDS: DIGOXIN 250 MCG TABLET PO (16:47)
[2020-04-26 18:53] LABS: Glucose Point of Care 143 (65-105)
[2020-04-26] MEDS: carvediloL 25 MG TABLET PO (21:06)
[2020-04-26] MEDS: ENOXAPARIN 120 MG/0.8 ML SYRINGE 105 MG SUB-Q (21:08)
[2020-04-27] VITALS (13 sets, daily range): BP systolic 113–152; BP diastolic 50–89; PULSE 65–92; RESP 18–24; TEMP 36–36.4; O2SAT 90–100
[2020-04-27 00:18] LABS: Glucose Point of Care 174 (65-105)
[2020-04-27 05:23] LABS: Basophils Absolute Auto 0.1 K/mm3 (0.0-0.1); Basophils Percent Auto 0.6 % (0.2-1.2); Eosinophils Absolute Auto 0.3 K/mm3 (0-0.3); Eosinophils Percent Auto 2.9 % (0-4.4); Hematocrit 37.9 % (37.0-47.0); Hemoglobin 12.8 g/dL (12.0-15.0); Immature Granulocyte Absolute 0.04 K/mm3 (0.00-0.031); Immature Granulocyte Percent A 0.5 % (0-0.5); Lymphocytes Absolute Auto 2.84 K/mm3 (0.9-3.2); Lymphocytes Percent Auto 33.4 % (18.3-44.2); Mean Corpuscular HGB Conc 33.8 g/dl (32-36); Mean Corpuscular Hemoglobin 32.5 pg (26-34); Mean Corpuscular Volume 96.2 fl (80-100); Mean Platelet Volume 10.1 fl (7.4-10.4); Monocytes Absolute Auto 0.6 K/mm3 (0.1-0.6); Monocytes Percent Auto 7.5 % (2.6-8.5); Neutrophils Absolute Auto 4.7 K/mm3 (1.3-6.7); Neutrophils Percent Auto 55.1 % (45.5-73.1); Platelet Count Result 234 k/mm3 (150-375); Red Blood Count 3.94 M/mm3 (4.2-5.4); Red Cell Distribution Width 14.2 % (11.5-14.5); White Blood Count 8.5 K/mm3 (4.5-10.0)
[2020-04-27 05:41] LABS: Anion Gap 1 mmol/L (8-16); Blood Urea Nitrogen 23 mg/dL (7-17); Calcium 8.4 mg/dL (8.4-10.2); Carbon Dioxide 34 mmol/L (22-30); Chloride 104 mmol/L (98-107); Cholesterol 126 mg/dL (0-200); Estimated CRCL calculation 50 ml/min; Estimated Glomerular Filt Rate 45; Glucose 142 mg/dL (65-105); HDL Direct 29 mg/dL; Magnesium 1.7 mg/dL (1.6-2.3); Potassium 3.6 mmol/L (3.4-5.0); Sodium 139 mmol/L (137-145); Triglycerides 149 mg/dL (<150)
[2020-04-27] MEDS: LEVOTHYROXINE SODIUM 100 MCG TABLET PO (05:46)
[2020-04-27 05:51] LABS: LDL Cholesterol Direct 69 mg/dL
[2020-04-27] MEDS: ASPIRIN 81 MG ENTERIC TABLET PO (08:00)
[2020-04-27] MEDS: carvediloL 25 MG TABLET PO ×2 (08:00→20:14)
[2020-04-27] MEDS: ATORVASTATIN 40 MG TABLET PO (08:00)
[2020-04-27] MEDS: DULoxetine HCL 20 MG CAPSULE.DR 40 MG PO (08:01)
[2020-04-27] MEDS: ENOXAPARIN 120 MG/0.8 ML SYRINGE 105 MG SUB-Q ×2 (08:01→20:14)
[2020-04-27] MEDS: DIGOXIN TAB 125 MCG TABLET PO (08:01)
[2020-04-27] MEDS: FUROSEMIDE INJ 40 MG/4 ML VIAL IV PUSH (08:03)
[2020-04-27 08:43] LABS: Glucose Point of Care 157 (65-105)
--- NOTE | 2020-04-27 09:07 | PM.PNCARD ---
Progress Note: A&P Assessment and Plan (1) Acute CHF (congestive heart failure): Qualifiers: Heart failure type: systolic Qualified Code(s): I50.21 - Acute systolic (congestive) heart failure Code(s): I50.9 - Heart failure, unspecified Status: Acute Assessment and Plan: Patient is a 69-year-old white woman with history of heart failure with reduced ejection fraction, nonischemic cardiomyopathy (2015), myocardial infarction (2015), paroxysmal atrial fibrillation, hypertension, hyperlipidemia, diabetes mellitus type 2, morbid obesity, severe obstructive sleep apnea (not on CPAP), hypothyroidism, hearing loss, depression, anxiety, who is seen in cardiac consultation for chief complaint of dyspnea. -she has acute on chronic heart failure with reduced ejection fraction occurring in the setting of hypertensive urgency, atrial fibrillation with rapid ventricular response, noncompliance with CPAP for severe obstructive sleep apnea, noncompliance with Cardiology follow-up, and dietary noncompliance with some added sodium in her diet. -blood pressure control improved with Lasix - supplement magnesium and potassium. -improved rate control and management of congestive heart failure with addition of digoxin. -continue her outpatient carvedilol 25 mg b.i.d. -pending stabilization of her mildly elevated creatinine, anticipate addition of losartan 25 mg daily as an eventual bridge to outpatient transition to Entresto given her recurrent CHF exacerbations, if Entresto is approved by her [employer] insurance. -pending stabilization of her renal function, consider addition of spironolactone. -importance of follow-up in the Cardiology Clinic discussed with the patient given her history of noncompliance with follow-up. -importance of compliance with low-sodium diet discussed with the patient, given her recent addition of sodium to her diet. -importance of an outpatient sleep study with initiation of CPAP discussed with the patient in the setting of her untreated severe obstructive sleep apnea. -obtain TSH given her hypothyroidism, treated with thyroid hormone supplement only for the last year, with associated 25 lb weight loss in the last year. -continue aspirin as per outpatient regimen. -given her elevated white blood count with neutrophilia on admission, repeat CBC, with further management as per primary service. -Recently, she had echocardiogram 02/25/2020: Mild left ventricular enlargement with moderate left ventricular hypertrophy, moderate left ventricular hypokinesis, worse in the inferoseptal gupta, left ventricular ejection fraction estimated at 40%, grade 1 diastolic dysfunction, left atrium moderately enlarged, no pulmonary hypertension, [id number] mitral regurgitation, trivial pericardial effusion, normal sinus rhythm. -Previously, she had cardiac catheterization March 25, 2016 which demonstrated normal coronary arteries with nonischemic cardiomyopathy (LVEF 30%). -consider further cardiac evaluation on outpt basis (2) HLD (hyperlipidemia): Onset Date: ~2014 Qualifiers: Hyperlipidemia type: unspecified Qualified Code(s): E78.5 - Hyperlipidemia, unspecified Code(s): E78.5 - Hyperlipidemia, unspecified Status: Acute Assessment and Plan: -obtain fasting lipid panel. -continue statin. (3) Obstructive sleep apnea (adult) (pediatric): Code(s): G47.33 - Obstructive sleep apnea (adult) (pediatric) Status: Acute Assessment and Plan: -importance of an outpatient sleep study with initiation of CPAP discussed with the patient in the setting of her untreated severe obstructive sleep apnea. (4) Atrial fibrillation with rapid ventricular response: Code(s): I48.91 - Unspecified atrial fibrillation Status: Acute Assessment and Plan: - HR well controlled now - initially she had atrial fibrillation with rapid ventricular response, heart rate 100, on presentation. -she re
--- NOTE | 2020-04-27 10:05 | PM.IMPN ---
Progress Note: A&P Assessment and Plan (1) Acute respiratory failure with hypoxia: Code(s): J96.01 - Acute respiratory failure with hypoxia Status: Resolved Assessment and Plan: Pt is off oxygen (2) Acute CHF (congestive heart failure): Qualifiers: Heart failure type: systolic Qualified Code(s): I50.21 - Acute systolic (congestive) heart failure Code(s): I50.9 - Heart failure, unspecified Status: Acute Assessment and Plan: Pt to start on iv lasix for diuresis, consult cardiology for multiple admissions with CHF. EF is 40%, Seen by cardiology advised digoxin and continuation of coreg (3) CKD (chronic kidney disease): Code(s): N18.9 - Chronic kidney disease, unspecified Status: Acute Assessment and Plan: Creat is 1.2 continue to monitor kidney function while pt is on diuresis. (4) Type 2 diabetes mellitus without complications: Onset Date: ~2017 Code(s): E11.9 - Type 2 diabetes mellitus without complications Status: Acute Assessment and Plan: SHANKAR Rowe, hold metformin for now. Subjective Date/time seen: 04/27/20 10:05 Interval history: Siddharth is a 69 year old female with past medical history of hypothyroidism, CHF, history of VT, hypertension, hyperlipidemia, anxiety/depression, diabetes type 2 who presents to the ED with complaints of dyspnea. Pt having three admissions with CHF since January 2020. Ef is 40% pt feels better off oxygen today adviced to walk around in the room, hopeful discharge in 1-2 days time Review of Systems Review of Systems: All systems reviewed & are unremarkable except as noted in HPI and below Exam Const: General: other (morbidly obese, on 2 liters of oxygen ) HENMT: Head: normocephalic Eyes: General: appearance normal, both eyes and all related structures Pupils: Equal, round and reactive pupils present Neck: Neck: supple Resp: Effort & Inspection: decreased respiratory effort and other (bilateral crackles tight chest ) Cardio: Jugular venous distension: no JVD Rhythm: regular rhythm Heart sounds: S1 normal heart sound present and S2 normal heart sound present GI: Inspection: normal to inspection Auscultation: normal bowel sounds Skin: General skin exam: normal color and dry skin Neuro: Cranial nerves: Yes CN's II-XII intact bilaterally and Yes Equal, round and reactive pupils present Cognition (Neuro): normal cognition Speech: normal speech Motor exam (neuro): 5/5 motor strength present throughout Extrem: General: normal to inspection Psych: Appearance: grossly normal Mental Status: mental status grossly normal Objective Data Vital Signs Vital Signs: Vital Signs - 24 hr 04/26/20 11:40 04/26/20 12:00 04/26/20 16:00 Temperature 36.9 C Pulse Rate 92 84 78 Respiratory Rate 16 Blood Pressure 150/97 H Pulse Oximetry 98 04/26/20 16:47 04/26/20 18:00 04/26/20 20:00 Temperature 36.3 C L 36.1 C L Pulse Rate 85 86 80 Respiratory Rate 18 20 Blood Pressure 139/99 H 136/88 Pulse Oximetry 99 99 04/26/20 21:06 04/27/20 00:00 04/27/20 04:00 Temperature 36.2 C L 36.2 C L Pulse Rate 80 68 65 Respiratory Rate 18 20 Blood Pressure 128/50 L 120/74 Pulse Oximetry 98 100 04/27/20 08:00 04/27/20 08:01 04/27/20 08:31 Temperature Pulse Rate 83 83 84 Respiratory Rate 18 Blood Pressure Pulse Oximetry 96 Intake/Output Intake/Output: Intake & Output 04/24/20 04/25/20 04/26/20 04/27/20 23:59 23:59 23:59 23:59 Intake Total 900 690 Output Total 550 325 Balance 350 365 Meds/Results Medications: Active Medications Generic Name Dose Route Start Last Admin Trade Name Freq PRN Reason Stop Dose Admin Aspirin 81 mg 04/27/20 09:00 04/27/20 08:00 Aspirin 81 Mg Enteric Tablet PO 81 mg DAILY LEE Administration Atorvastatin Calcium 40 mg 04/27/20 09:00 04/27/20 08:00 Atorvastatin 40 Mg Tablet PO 40 mg
[2020-04-27 12:00] LABS: Glucose Point of Care 146 (65-105)
[2020-04-27] MEDS: POTASSIUM CHLORIDE 20 MEQ PACKET (FOR LIQUID) PO (12:44)
[2020-04-27] MEDS: MAGNESIUM OXIDE 400 MG TABLET PO (12:44)
[2020-04-27 13:10] LABS: T4 Thyroxine 9.08 ug/dL (5.53-11.0)
[2020-04-27 17:08] LABS: Glucose Point of Care 146 (65-105)
[2020-04-28] VITALS (7 sets, daily range): BP systolic 155; BP diastolic 98; PULSE 60–90; RESP 18; TEMP 36.1; O2SAT 95
[2020-04-28 05:42] LABS: Anion Gap 2 mmol/L (8-16); Blood Urea Nitrogen 21 mg/dL (7-17); Calcium 8.5 mg/dL (8.4-10.2); Carbon Dioxide 34 mmol/L (22-30); Chloride 102 mmol/L (98-107); Estimated CRCL calculation 55 ml/min; Estimated Glomerular Filt Rate 50; Glucose 143 mg/dL (65-105); Magnesium 1.8 mg/dL (1.6-2.3); Potassium 3.5 mmol/L (3.4-5.0); Sodium 138 mmol/L (137-145)
[2020-04-28] MEDS: LEVOTHYROXINE SODIUM 100 MCG TABLET PO (06:10)
[2020-04-28 08:30] LABS: Glucose Point of Care 157 (65-105)
[2020-04-28] MEDS: ASPIRIN 81 MG ENTERIC TABLET PO (08:35)
[2020-04-28] MEDS: MAGNESIUM OXIDE 400 MG TABLET PO (08:35)
[2020-04-28] MEDS: carvediloL 25 MG TABLET PO (08:35)
[2020-04-28] MEDS: DIGOXIN TAB 125 MCG TABLET PO (08:36)
[2020-04-28] MEDS: ENOXAPARIN 120 MG/0.8 ML SYRINGE 105 MG SUB-Q (08:36)
[2020-04-28] MEDS: DULoxetine HCL 20 MG CAPSULE.DR 40 MG PO (08:36)
[2020-04-28] MEDS: ATORVASTATIN 40 MG TABLET PO (08:36)
[2020-04-28] MEDS: POTASSIUM CHLORIDE 20 MEQ PACKET (FOR LIQUID) PO (08:36)
[2020-04-28] MEDS: FUROSEMIDE INJ 40 MG/4 ML VIAL IV PUSH (08:36)
--- NOTE | 2020-04-28 08:39 | PM.PNCARD ---
Progress Note: A&P Assessment and Plan (1) Acute CHF (congestive heart failure): Qualifiers: Heart failure type: systolic Qualified Code(s): I50.21 - Acute systolic (congestive) heart failure Code(s): I50.9 - Heart failure, unspecified Status: Acute Assessment and Plan: Patient is a 69-year-old white woman with history of heart failure with reduced ejection fraction, nonischemic cardiomyopathy (2015), myocardial infarction (2015), paroxysmal atrial fibrillation, hypertension, hyperlipidemia, diabetes mellitus type 2, morbid obesity, severe obstructive sleep apnea (not on CPAP), hypothyroidism, hearing loss, depression, anxiety, who is seen in cardiac consultation for chief complaint of dyspnea. -she has acute on chronic heart failure with reduced ejection fraction occurring in the setting of hypertensive urgency, atrial fibrillation with rapid ventricular response, noncompliance with CPAP for severe obstructive sleep apnea, noncompliance with Cardiology follow-up, and dietary noncompliance with some added sodium in her diet. -blood pressure control improved with Lasix - supplement magnesium and potassium. -improved rate control and management of congestive heart failure with addition of digoxin. -continue her outpatient carvedilol 25 mg b.i.d. -given stabilization of her mildly elevated creatinine, added losartan 25 mg daily as an eventual bridge to outpatient transition to Entresto given her recurrent CHF exacerbations, if Entresto is approved by her [employer] insurance. -pending stabilization of her renal function, consider addition of spironolactone as an outpatient. -importance of follow-up in the Cardiology Clinic discussed with the patient given her history of noncompliance with follow-up. -importance of compliance with low-sodium diet discussed with the patient, given her recent addition of sodium to her diet. -importance of an outpatient sleep study with initiation of CPAP discussed with the patient in the setting of her untreated severe obstructive sleep apnea. -obtain normal TSH for evaluation of her hypothyroidism, treated with thyroid hormone supplement only for the last year, with associated 25 lb weight loss in the last year. -continue aspirin as per outpatient regimen. -given her elevated white blood count with neutrophilia on admission, repeated CBC with normalization of white blood count. -Recently, she had echocardiogram 02/25/2020: Mild left ventricular enlargement with moderate left ventricular hypertrophy, moderate left ventricular hypokinesis, worse in the inferoseptal gupta, left ventricular ejection fraction estimated at 40%, grade 1 diastolic dysfunction, left atrium moderately enlarged, no pulmonary hypertension, [id number] mitral regurgitation, trivial pericardial effusion, normal sinus rhythm. -Previously, she had cardiac catheterization March 25, 2016 which demonstrated normal coronary arteries with nonischemic cardiomyopathy (LVEF 30%). -consider further cardiac evaluation on outpt basis -patient appears stable for discharge from a cardiac perspective with follow-up in the Cardiology Clinic in 1 week. (2) HLD (hyperlipidemia): Onset Date: ~2014 Qualifiers: Hyperlipidemia type: unspecified Qualified Code(s): E78.5 - Hyperlipidemia, unspecified Code(s): E78.5 - Hyperlipidemia, unspecified Status: Acute Assessment and Plan: -obtained fasting lipid panel with LDL 69. -continue statin. (3) Obstructive sleep apnea (adult) (pediatric): Code(s): G47.33 - Obstructive sleep apnea (adult) (pediatric) Status: Acute Assessment and Plan: -importance of an outpatient sleep study with initiation of CPAP discussed with the patient in the setting of her untreated severe obstructive sleep apnea. (4) Atrial fibrillation with rapid ventricular response: Code(s): I48.91 - Unspecified atrial fibrillation Status: Acute Assessment and Pl
[2020-04-28] MEDS: POTASSIUM CHLORIDE 20 MEQ PACKET (FOR LIQUID) 40 MEQ PO (12:14)
[2020-04-28] MEDS: LOSARTAN POTASSIUM 25 MG TABLET PO (12:14)
--- NOTE | 2020-04-28 12:44 | PM.DS ---
DS: Admitting Diagnosis Admitting Diagnosis Admitting Diagnosis: SOB history of chf DS: Discharge Diagnosis Discharge Diagnosis (1) Acute respiratory failure with hypoxia: Code(s): J96.01 - Acute respiratory failure with hypoxia Status: Resolved Assessment and Plan: Pt is off oxygen now after iv diuresis (2) Acute CHF (congestive heart failure): Qualifiers: Heart failure type: systolic Qualified Code(s): I50.21 - Acute systolic (congestive) heart failure Code(s): I50.9 - Heart failure, unspecified Status: Acute Assessment and Plan: Pt to start on iv lasix for diuresis, consult cardiology for multiple admissions with CHF. EF is 40%, Seen by cardiology advised digoxin and continuation of coreg and oral lasix and potassium supplementation. Pt to follow with cardiology and PCP. (3) CKD (chronic kidney disease): Code(s): N18.9 - Chronic kidney disease, unspecified Status: Acute Assessment and Plan: Creat is 1.1 continue to monitor kidney function while pt is on diuresis. (4) Type 2 diabetes mellitus without complications: Onset Date: ~2017 Code(s): E11.9 - Type 2 diabetes mellitus without complications Status: Acute Assessment and Plan: pt is back on metformin, hbaic is 7.1 (5) Atrial fibrillation with rapid ventricular response: Code(s): I48.91 - Unspecified atrial fibrillation Status: Acute Assessment and Plan: pt is on lovenox BID transitioned to eliquis bid and digoxin DS: Summary Hospital Course Hospital Course: Siddharth is a 69 year old female with past medical history of hypothyroidism, CHF, history of NH, hypertension, hyperlipidemia, anxiety/depression, diabetes type 2 who presents to the ED with complaints of dyspnea. Pt having three admissions with CHF since January 2020. Ef is 40% pt feels better now, pt is off oxygen, medications have been adjusted by cardiology. Time Spent with Patient Time attestation: Total time spent providing and/or coordinating discharge services:40 minutes on day of discharge Exam Const: General: comfortable HENMT: Head: normocephalic Eyes: General: appearance normal, both eyes and all related structures Pupils: Equal, round and reactive pupils present Neck: Neck: supple Chest: Chest palpation & inspection: normal inspection of the chest Resp: Effort & Inspection: decreased respiratory effort and other (bilateral crackles tight chest ) Cardio: Jugular venous distension: no JVD Rhythm: regular rhythm Heart sounds: S1 normal heart sound present and S2 normal heart sound present GI: Inspection: normal to inspection Auscultation: normal bowel sounds Skin: General skin exam: normal color and dry skin Neuro: Cranial nerves: Yes CN's II-XII intact bilaterally and Yes Equal, round and reactive pupils present Cognition (Neuro): normal cognition Speech: normal speech Motor exam (neuro): 5/5 motor strength present throughout Extrem: General: normal to inspection Psych: Appearance: grossly normal Mental Status: mental status grossly normal DS: Data Data Completed and Pending Labs on day of discharge: Labs from last 24 hours 04/28/20 04/28/20 04/27/20 08:28 05:20 16:58 Sodium 138 Potassium 3.5 Chloride 102 Carbon Dioxide 34 H Anion Gap 2 L BUN 21 H Creatinine 1.10 H Estim Creat Clear Calc 55 Estimated GFR 50 L Glucose 143 H POC Capillary Glucose 157 H 146 H Calcium 8.5 Magnesium 1.8 Thyroxine (T4) 04/27/20 07:42 Sodium Potassium Chloride Carbon Dioxide Anion Gap BUN Creatinine Estim Creat Clear Calc Estimated GFR Glucose POC Capillary Glucose Calcium Magnesium Thyroxine (T4) 9.08 Discharge Plan Discharge Attending physician on discharge: Niki Chavez Consulting providers: John Echevarria Discharging Clinician: Niki Chavez Anticipated Discharge D
[2020-04-28 13:04] LABS: Glucose Point of Care 230 (65-105)
== END 2020-04-28 14:10 | disposition home or self-care (01) ==
LOC: ANHED 04-26 03:32 → ANH2MED 04-26 08:18
PROVIDERS: Emergency Medicine; Admitting Provider Family Medicine; Emergency Provider Emergency Medicine; PCP Family Medicine; Visit Provider Family Medicine
DX: J96.01 Acute respiratory failure with hypoxia (principal); I50.21 Acute systolic (congestive) heart failure; I16.0 Hypertensive urgency; I13.0 Hypertensive heart and chronic kidney disease with heart failure and stage 1 through stage 4 chronic kidney disease, or unspecified chronic kidney disease; N18.9 Chronic kidney disease, unspecified; E11.22 Type 2 diabetes mellitus with diabetic chronic kidney disease; I48.0 Paroxysmal atrial fibrillation; I42.8 Other cardiomyopathies; I25.2 Old myocardial infarction; E78.5 Hyperlipidemia, unspecified; E03.9 Hypothyroidism, unspecified; G47.33 Obstructive sleep apnea (adult) (pediatric); E55.9 Vitamin D deficiency, unspecified; F41.8 Other specified anxiety disorders; Z79.84 Long term (current) use of oral hypoglycemic drugs; Z79.82 Long term (current) use of aspirin; E66.01 Morbid (severe) obesity due to excess calories; Z68.38 Body mass index [BMI] 38.0-38.9, adult
CPT/HCPCS: 36415; 71046; 80048; 80061; 82948; 83036; 83735; 84436; 84443; 84484; 85025; 93005; 94640; 96374; 96376; 99285; A9270; G0378; J1650; J1940